=== PATIENT | female | born 1930 | race Caucasian/White ===

== ENCOUNTER 2017-06-16 12:17 | Emergency (ER) | payer MEDICARE, OTHER ==
[2017-06-16 12:25] VITALS: BP 130/69
--- NOTE | 2017-06-16 13:06 | RAD ---
HISTORY: Left knee trauma COMPARISONS: None VIEWS: 4, Frontal, lateral, axial, and oblique views of the left knee FINDINGS: BONE DENSITY: There is diffuse osteopenia. BONES: There is no displaced fracture. JOINTS: There is chondrocalcinosis. There is mild joint space narrowing. ALIGNMENT: There is no dislocation. SOFT TISSUES: There is peripheral arterial calcification OTHER FINDINGS: None. IMPRESSION: 1. OSTEOPENIA. 2. MILD OSTEOARTHRITIS. 3. CHONDROCALCINOSIS. 4. PERIPHERAL ARTERIAL DISEASE. 5. NO ACUTE OSSEOUS INJURY. THE DEGREE OF OSTEOPENIA MAY MAKE A NONDISPLACED FRACTURE RADIOGRAPHICALLY OCCULT. IF SYMPTOMS PERSIST, RECOMMEND REPEAT IMAGING.
--- NOTE | 2017-06-16 13:48 | UC ---
Edna Mazariegos Alfonso, scribed for Ladarius Smallwood MD on 06/16/17 at 1235 . Knee Pain HPI - HPI Summary HPI Summary: This patient is an 86 year old F presenting to [facility] with a chief complaint of left knee pain since 2 weeks ago. She reports injuring her knee 2 weeks ago. Today she was getting into a car and the left knee pain became worse. The CC is described as aching pain. The patient rates the pain 7/10 in severity. Symptoms aggravated by ambulation. Symptoms alleviated by nothing. Patient reports left knee bruising. She takes Coumadin. Patients medications reviewed this visit. - History of Current Complaint Chief Complaint: UCLowerExtremity Stated Complaint: KNEE INJURY Time Seen by Provider: 06/16/17 12:32 Hx Obtained From: Patient Onset/Duration: Sudden Onset, Lasting Weeks - 2, Worse Since - today Severity Initially: Moderate Severity Currently: Moderate Location Of Injury: Left knee Pain Intensity: 7 Pain Scale Used: 0-10 Numeric Character: Aching Aggravating Factor(s): Movement Alleviating Factor(s): Nothing Associated Signs And Symptoms: Positive: Bruising - left knee - Allergies/Home Medications Allergies/Adverse Reactions: Allergies Allergy/AdvReac Type Severity Reaction Status Date / Time Piroxicam [From Feldene] Allergy Nausea Verified 06/16/17 12:25 Sulfa Antibiotics Allergy Unknown Verified 06/16/17 12:25 Reaction Details Home Medications: Home Medications Diflunisal TAB* [Dolobid TAB*] 500 mg PO DAILY 06/16/17 [History Confirmed 06/16] Ezetimibe TAB* [Zetia TAB*] 10 mg PO 1700 06/16/17 [History Confirmed 06/16/17] Hydrochlorothiazide TAB* [Hydrodiuril TAB*] 25 mg PO DAILY 06/16/17 [History Confirmed 06/16/17] Lisinopril TAB* [Prinivil TAB*] 5 mg PO DAILY 06/16/17 [History Confirmed ] Metoprolol Succinate XL TAB* [Toprol XL TAB*] 50 mg PO BEDTIME 06/16/17 [ History Confirmed 06/16/17] Lynn-3 Fatty Acids [Fish Oil] 1,000 mg PO DAILY 06/16/17 [History Confirmed ] Pravastatin Sodium [Pravachol] 80 mg PO DAILY 06/16/17 [History Confirmed ] Warfarin TAB(*) [Coumadin TAB(*)] 1 mg PO DAILY 06/16/17 [History Confirmed ] traMADol TAB* [Ultram*] 50 mg PO TID PRN 06/16/17 [History Confirmed 06/16/17] PMH/Surg Hx/FS Hx/Imm Hx Other Cardiovascular History: PE and DVT. - Surgical History Surgery Procedure, Year, and Place: Bypass 1999. hysterectomy 1961. great right toe bone replacement. gall bladder removed 2000 - Family History Known Family History: Negative: Cardiac Disease, Diabetes - Social History Lives: With Family Alcohol Use: None Substance Use Type: None Smoking Status (MU): Former Smoker Review of Systems Constitutional: Negative Musculoskeletal: Other: - Left knee pain and left knee brusing. All Other Systems Reviewed And Are Negative: Yes Physical Exam Triage Information Reviewed: Yes Vital Signs: Initial Vital Signs Temp 98.3 F 06/16/17 12:20 Pulse 80 06/16/17 12:20 Resp 20 06/16/17 12:20 BP 130/69 06/16/17 12:20 Pulse Ox 98 06/16/17 12:20 Vital Signs Reviewed: Yes - Additional Comments The patient is well-nourished in no acute distress and in no acute pain. The skin is warm and dry and skin color reflects adequate perfusion. HEENT: The head is normocephalic and atraumatic. The pupils are equal and reactive. The conjunctivae are clear and without drainage. Nares are patent and without drainage. Mouth reveals moist mucous membranes and the throat is without erythema and exudate. The external ears are intact. The ear canals are patent and without drainage. The tympanic membranes are intact. Neck is supple with full range of motion and non-tender. There are no carotid bruits. There is no neck vein distension. Respiratory: Chest is non-tender. Lungs are clear to auscultation and breath sounds are symmetrical and equal. Cardiovascular: Heart is regular rate and rhythm. There is no murmur or rub auscultated. Pulses are symmetrical and equal. Abdomen: The abdomen is soft and non-tender. Musculoskeletal: There is no back pain noted. There is no peripheral edema or calf tenderness elicited. LLE: Tenderness in medial compartment of left knee. No effusion. Decreased flexion to 80 degrees. Normal extension. No medial or lateral collateral lax ligament. No tenderness in the proximal tibia. Good distal pulses. Jad varicose vein through the LE. No motor weakness noted. Sensations to light touch. Neurological: Patient is alert and oriented to person, place and time. The patient has symmetrical motor strength in all four extremities. Cranial nerves are grossly intact. Psychiatric: The patient has an appropriate affect. Diagnostics - Laboratory Diagnostic Studies Completed/Ordered: Left Knee X-Ray reveals, per radiologist, 1. OSTEOPENIA. 2. MILD OSTEOARTHRITIS. 3. CHONDROCALCINOSIS. 4. PERIPHERAL ARTERIAL DISEASE. 5. NO ACUTE OSSEOUS INJURY. THE DEGREE OF OSTEOPENIA MAY MAKE A NONDISPLACED FRACTURE RADIOGRAPHICALLY OCCULT. IF SYMPTOMS PERSIST, RECOMMEND REPEAT IMAGING. [facility] physician has reviewed this radiology report and agrees. Re-Evaluation - Re-Evaluation First Eval Re-Evaluation Time: 13:08 Comment: Dr. Smallwood discussed imaging results and plan of care with patient. Knee Pain Course/Dx - Course Course Of Treatment: This patient is an 86 year old F presenting to [facility] with a chief complaint of left knee pain since 2 weeks ago. She reports injuring her knee 2 weeks ago. Today she was getting into a car and the left knee pain became worse. The CC is described as aching pain. The patient rates the pain 7/ 10 in severity. Symptoms aggravated by ambulation. Symptoms alleviated by nothing. Patient reports left knee bruising. She takes Coumadin. Patients medications reviewed this visit. Left Knee X-Ray reveals, per radiologist, 1. OSTEOPENIA. 2. MILD OSTEOARTHRITIS. 3. CHONDROCALCINOSIS. 4. PERIPHERAL ARTERIAL DISEASE. 5. NO ACUTE OSSEOUS INJURY. THE DEGREE OF OSTEOPENIA MAY MAKE A NONDISPLACED FRACTURE RADIOGRAPHICALLY OCCULT. IF SYMPTOMS PERSIST, RECOMMEND REPEAT IMAGING. [facility] physician has reviewed this radiology report and agrees. PT INSTRUCTED TO FOLLOW UP WITH YOUR PRIMARY CARE PROVIDER IN 4 WEEKS FOR HIGH BLOOD PRESSURE NOTED TODAY AT 130/69. Patient will be discharged with prescription and follow up from Dr. Sotomayor (PCP). The patient is agreeable with this plan. - Differential Dx/Diagnosis Differential Diagnosis/HQI/PQRI: Contusion, Fracture (Closed), Internal Derangement Of Knee, Other - arthritis, hemarthrosis, Provider Diagnoses: Left knee pain, arthritis. Discharge - Discharge Plan Condition: Stable Disposition: HOME Prescriptions: oxyCODONE TAB* [Roxycodone TAB 5 mg*] 5 mg PO Q6H PRN #20 tab MDD 4 PRN Reason: pain Patient Education Materials: Knee Pain (ED) Referrals: Darius Sotomayor MD [Primary Care Provider] - 1 Week Additional Instructions: FOLLOW UP WITH YOUR PRIMARY CARE PROVIDER IN 4 WEEKS FOR HIGH BLOOD PRESSURE NOTED TODAY AT 130/69. ICE AND ELEVATE YOUR KNEE. USE WALKER. USE KNEE IMMOBILIZER. The documentation as recorded by the Edna morales Alfonso accurately reflects the service I personally performed and the decisions made by , Ladarius Smallwood MD.
== END 2017-06-16 13:40 | disposition home or self-care (01) ==
LOC: UCEAST 12:17
DX: M25.562 Pain in left knee (principal); M17.12 Unilateral primary osteoarthritis, left knee; Z88.2 Allergy status to sulfonamides; Z79.01 Long term (current) use of anticoagulants; Z87.891 Personal history of nicotine dependence; Z95.1 Presence of aortocoronary bypass graft
CPT/HCPCS: 99212; G0463